=== PATIENT | male | born 1990 | race African-American/Black ===

== ENCOUNTER 2020-05-07 11:48 | Emergency (ER) | payer MEDICAID, OTHER ==
[~2020-05-07] VITALS: Ht 182.9 cm; Wt 80.7 kg
[2020-05-07 11:51] VITALS: BP 145/97
[2020-05-07 12:59] VITALS: BP 145/97
== END 2020-05-07 12:59 | disposition home or self-care (01) ==
LOC: MED 11:48
DX: R00.2 Palpitations (principal); R03.0 Elevated blood-pressure reading, without diagnosis of hypertension; J45.901 Unspecified asthma with (acute) exacerbation; Z88.6 Allergy status to analgesic agent; Z79.899 Other long term (current) drug therapy
CPT/HCPCS: 93005; 99283